=== PATIENT | male | born 1995 | race Caucasian/White ===

== ENCOUNTER 2018-03-28 23:45 | Emergency (ER) | payer SELFPAY ==
[2018-03-29 00:11] VITALS: BP 110/70; PULSE 77; RESP 20; TEMP 98.2; O2SAT 98
[2018-03-29] MEDS ORDERED: Lidocaine 1% Inj (20ml) INFIL STA (00:19)
[2018-03-29] MEDS ORDERED: Tdap Vaccine 0.5 ml Vial (10-64 yrs) IM ONE (00:20)
[2018-03-29] MEDS ORDERED: Tetanus/Diphtheria Toxoids 0.5 ml Syringe IM ONE (00:26)
[2018-03-29] MEDS ORDERED: Bacitracin 500 Units/gm Oint Foilpak UD ONE ×2 (00:48→00:57)
--- NOTE | 2018-03-29 00:50 | C.PDOC ---
History Of Present Illness 22 year old male presents to the ER after he sustained a laceration to the face while playing soccer at 2044 today. Patient states he was to the right side of the face with someone else's elbow. Patient is not up to date with tetanus; denies LOC or other complaints at this time. Time Seen by Provider: 03/29/18 00:11 Chief Complaint (Nursing): Abnormal Skin Integrity History Per: Patient History/Exam Limitations: no limitations Onset/Duration Of Symptoms: Hrs Current Symptoms Are (Timing): Still Present Location Of Injury: Right: Face Quality Of Symptoms: Other (Laceration) Recent travel outside of the [place]: No Past Medical History Reviewed: Historical Data, Nursing Documentation, Vital Signs Vital Signs: Last Vital Signs Temp 98.2 F 03/29/18 00:04 Pulse 77 03/29/18 00:04 Resp 20 03/29/18 00:56 BP 110/70 03/29/18 00:04 Pulse Ox 98 03/29/18 04:08 Family History: States: Unknown Family Hx - Social History Hx Alcohol Use: No Hx Substance Use: No - Immunization History Hx Tetanus Toxoid Vaccination: No Hx Influenza Vaccination: No Hx Pneumococcal Vaccination: No Review Of Systems Skin: Positive for: Other (Laceration to right face) Neurological: Negative for: Other (LOC) Physical Exam - Physical Exam Appears: Non-toxic Skin: Warm, Dry Head: Normacephalic, Laceration (2.5 linear laceration to right eye brow) Eye(s): bilateral: Normal Inspection, PERRL, EOMI, right: Other ( hypopigmentation of right eyebrow and eyelashes) Neck: No Midline Cervical Tenderness, No Paracervical Tenderness, Supple Chest: Symmetrical Extremity: Bilateral: Atraumatic, Normal ROM Neurological/Psych: Oriented x3, Normal Speech, Other (No focal deficits) ED Course And Treatment O2 Sat by Pulse Oximetry: 98 (Room air) Pulse Ox Interpretation: Normal Laceration - Laceration Repair Right eye brow Wound Length (In cm): 2.5 Description Of Wound: Linear Wound Cleansed With: Sterile Saline Anesthesia: Lidocaine 1% Wound Examination: Irrigated With Saline, No FB With Wound Exploration Wound Closure: Suture Suture Technique And Material Used: Nylon (Three 5-0) Wound Complexity: Simple Medical Decision Making Medical Decision Making: Patient tolerated laceration repair without difficulty, tetanus vaccination administered. Patient given proper wound care instructions and advised to follow up for suture removal. Disposition Counseled Patient/Family Regarding: Diagnosis, Need For Followup - Disposition Disposition: HOME/ ROUTINE Disposition Time: 00:50 Condition: GOOD Additional Instructions: Keep area clean and dry. May wash gently with soap and water, do not use alcohol or iodine solution. Change dressing 1-2 times daily. Return to ER if fever occurs, redness or swelling around wound, pus in the wound. Please follow up with your primary doctor, clinic, or urgent care for suture removal in 7 days Instructions: Laceration Repair With Stitches (DC) Forms: [email or web address] (Al[place]ian) - POA Present On Arrival: None - Clinical Impression Clinical Impression: Laceration of face - PA / [employer] / Resident Statement MD/DO has reviewed & agrees with the documentation as recorded. - Scribe Statement The provider has reviewed the documentation as recorded by the Scribe Laci Ayala All medical record entries made by the Scribe were at my direction and personally dictated by me. I have reviewed the chart and agree that the record accurately reflects my personal performance of the history, physical exam, medical decision making, and the department course for this patient. I have also personally directed, reviewed, and agree with the discharge instructions and disposition.
== END 2018-03-29 00:56 | disposition home or self-care (01) ==
LOC: C.ER 23:45
DX: S01.111A Laceration without foreign body of right eyelid and periocular area, initial encounter (principal); W50.0XXA Accidental hit or strike by another person, initial encounter; Y93.66 Activity, soccer